=== PATIENT | male | born 1990 | race African-American/Black ===

== ENCOUNTER 2021-03-01 11:33 | Emergency (ER) | payer OTHER ==
[2021-03-01 11:47] VITALS: BP 157/81; PULSE 101; TEMP 98.8; BMI 43.5
[2021-03-01] MEDS ORDERED: IBUPROFEN 600 MG TABLET (FP) PO ONE ×2 (11:50→12:10)
[2021-03-01] MEDS ORDERED: ACETAMINOPHEN 500 MG TABLET (FP) PO ONE (13:28)
[2021-03-01] MEDS ORDERED: ACETAMINOPHEN 500 MG TABLET (FP) ONE (13:30)
== END 2021-03-01 15:08 | disposition home or self-care (01) ==
LOC: JERFT 11:33
DX: S93.492A Sprain of other ligament of left ankle, initial encounter (principal); S89.92XA Unspecified injury of left lower leg, initial encounter
CPT/HCPCS: 73562-TC-LT-FY; 73610-TC-LT-FY; 73630-TC-LT; 99284-25